=== PATIENT | male | born 2000 | race Caucasian/White ===

== ENCOUNTER 2024-05-28 16:31 | Emergency (ER) | payer BC, SELFPAY ==
[2024-05-28 16:42] VITALS: BP 153/81; PULSE 75; RESP 20; TEMP 36.1; O2SAT 98
--- NOTE | 2024-05-28 16:46 | ED_ITS ---
HPI - URI/Sore Throat General Stated Complaint: Abdominal Pain Time Seen by Provider: 05/28/24 16:46 Source: patient, RN notes reviewed and old records reviewed Mode of arrival: ambulatory Limitations: no limitations History of Present Illness HPI Narrative: Patient presents with vague complaints. He initially states that he is here because he has a hernia, then admits that he has never been diagnosed with a her rell but does believe he has 1. He was hoping to get a referral for a ?hernia specialist? today. When advised that he will have to see his primary care provider to get any referrals he then asks for work note and states that he has missed ?a few? days of work and now needs a work note to be able to return. Says that he missed work due to a headache, but no longer has a headache. Related Data Home Medications ?Medication ?Instructions ?Recorded ?Confirmed ?Last Taken ?Type losartan 50 mg tablet mg 05/28/24 Unknown History Allergies Allergy/AdvReac Type Severity Reaction Status Date / Time No Known Allergies Allergy Verified 05/28/24 16:42 Review of Systems Review of Systems: All systems reviewed & are unremarkable except as noted in HPI and below Constitutional: Constitutional: Reports no additional constitutional complaints ENT: Reports system reviewed and no additional complaints, except as documented Cardiovascular: Cardiovascular: Reports no additional cardiovascular complaints Respiratory: Respiratory: Reports no additional respiratory complaints Gastrointestinal: Gastrointestinal: Reports no additional gastrointestinal complaints and Reports other (hernia) Neurologic: Reports other (Headache that has resolved) [facility] Comments At the time of my signature, I reviewed and agree with the nursing past medical, surgical, social, and family history. There is no relevant family history pertinent to the patient complaint. Exam Const: General: cooperative, no acute distress, alert and awake Orientation/consciousness: oriented to person, oriented to place and oriented to time HENMT: Head: normal to inspection Resp: Effort & Inspection: normal respiratory effort and able to speak in complete sentences Auscultation: clear to auscultation bilaterally, no crackles, no rales, no rhonchi and no wheezes Cardio: Palpation: normal PMI Rate: regular rate Rhythm: regular rhythm Heart sounds: S1 normal heart sound present and S2 normal heart sound present GI: Auscultation: normal bowel sounds Other: Difficult exam due to body habitus Neuro: General: oriented to person, oriented to place and oriented to time Cranial nerves: Yes CN's II-XII intact bilaterally Cognition (Neuro): normal cognition Speech: normal speech Gait exam (Neuro): Normal gait present Psych: Appearance: grossly normal Thought process: Normal thought process present Insight: Good insight present (Psych) Judgement: Good judgement present (Psych) Course Course Level of Care: Express Care Visit Vital Signs Vital signs: Vital Signs Temperature 97 F L 05/28/24 16:42 Pulse Rate 75 05/28/24 16:42 Respiratory Rate 20 05/28/24 16:42 Blood Pressure 153/81 H 05/28/24 16:42 Pulse Oximetry 98 05/28/24 16:42 Oxygen Delivery Room Air 05/28/24 16:42 Temperature 97 F L 05/28/24 16:42 Pulse Rate 75 05/28/24 16:42 Respiratory Rate 20 05/28/24 16:42 Blood Pressure 153/81 H 05/28/24 16:42 Pulse Oximetry 98 05/28/24 16:42 Oxygen Delivery Room Air 05/28/24 16:42 Reviewed MDM - URI/Sore Throat MDM Narrative Medical decision making narrative: Reassuring physical exam. Signs and symptoms of incarcerated hernia and the emergency nature of same discussed at length with patient. He has no complaints at time of discharge. He is advised to follow with primary care provider. Discharge instructions reviewed with patient, as well as provided in writing per nursing staff. The instructions also include specific and strict return/GO TO THE ER as well as f/u information. All questions have been answered, and the patient deny any further questions with discharge and discharge plan. Some parts of this dictation were generated by voice recognition software and may contain typographical and/or grammatical inaccuracies. Differential Diagnosis Differential diagnosis: Likely upper respiratory infection and other (Malingering) Medical Records Attestation: I reviewed the patient's medical records. Discharge Plan Discharge Clinical Impression: Headache Qualifiers: Headache type: unspecified Headache chronicity pattern: acute headache Intractability: not intractable Qualified Code(s): R51.9 - Headache, unspecified Patient Disposition: Home, Self-Care Condition: Stable Instructions: Acute Headache (ED) Additional Instructions: Follow-up with primary care provider. Emergency department for new or worse symptoms Patient Language: Wallisian Prescriptions: No Action losartan 50 mg tablet Follow-up/Referrals: Corie,Nelson Stiles PA-C [Primary Care Provider] - 3 Days Stand Alone Forms: Work/School Release IP Time of Disposition: 17:45
== END 2024-05-28 17:45 | disposition home or self-care (01) ==
LOC: EXPCOLL 16:36
PROVIDERS: Emergency Provider Nurse Practitioner Family; PCP Physician Assistant
DX: R51.9 Headache, unspecified (principal)
CPT/HCPCS: 99211; G0463